=== PATIENT | male | born 1960 | race African-American/Black ===

== ENCOUNTER 2024-10-25 18:49 | Emergency (ER) | payer OTHER ==
[~2024-10-25] VITALS: Ht 175.3 cm; Wt 77.1 kg
[2024-10-25 19:05] VITALS: BP 140/92; TEMP 98.1; O2SAT 100
== END 2024-10-25 20:11 | disposition home or self-care (01) ==
LOC: ER 19:08
DX: R76.11 Nonspecific reaction to tuberculin skin test without active tuberculosis (principal)
CPT/HCPCS: 71046

== ENCOUNTER 2025-01-09 16:51 | Emergency (ER) | payer MEDICAID, OTHER ==
[~2025-01-09] VITALS: Ht 175.3 cm; Wt 83.0 kg
[2025-01-09 17:08] VITALS: BP 132/83; TEMP 98.5
[2025-01-09] MEDS ORDERED: SULFAMETH/TRIMETH 800/160 MG 1 UDTAB TABLET ONE (17:29)
[2025-01-09] MEDS ORDERED: LET SOLN TOPICAL 8 ML UDC TP ONE (17:29)
[2025-01-09] MEDS ORDERED: BACI/NEOM/POLY B OINT PKT 1 UDPKT PACKET ONE (17:29)
[2025-01-09] MEDS ORDERED: LIDOCAINE/PRILOCAINE (5GM) 5 GM TUBE TP ONE (17:29)
[2025-01-09] MEDS ORDERED: CEPHALEXIN MONOHYDRATE 500 MG CAPSULE PO ONE (17:29)
[2025-01-09] MEDS: SULFAMETH/TRIMETH 800/160 MG 1 UDTAB TABLET PO ONE (17:34)
[2025-01-09] MEDS: CEPHALEXIN MONOHYDRATE 500 MG CAPSULE PO ONE (17:34)
[2025-01-09] MEDS: LIDOCAINE/PRILOCAINE (5GM) 5 GM TUBE TP ONE (17:35)
[2025-01-09] MEDS: BACI/NEOM/POLY B OINT PKT 1 UDPKT PACKET TP ONE (17:35)
[2025-01-09] MEDS: LET SOLN TOPICAL 8 ML UDC TP ONE (17:35)
[2025-01-09] MEDS ORDERED: CEPH-570 PO (17:58)
[2025-01-09] MEDS ORDERED: MUPI15CR TP (17:58)
[2025-01-09] MEDS ORDERED: SULF1TAB48 PO (17:58)
[2025-01-09 18:06] VITALS: O2SAT 97
== END 2025-01-09 18:06 | disposition home or self-care (01) ==
LOC: ER 16:54
DX: L73.9 Follicular disorder, unspecified (principal); Z88.8 Allergy status to other drugs, medicaments and biological substances
CPT/HCPCS: 99283; 10060; A6403

== ENCOUNTER 2025-01-18 14:51 | Emergency (ER) | payer MEDICAID ==
[~2025-01-18] VITALS: Ht 175.3 cm; Wt 83.5 kg
[~2025-01-18 14:51] MED LIST: CEPH-570 PO; MUPI15CR TP; SULF1TAB48 PO
[2025-01-18 17:42] VITALS: BP 118/77; TEMP 98.5; O2SAT 98
== END 2025-01-18 17:45 | disposition home or self-care (01) ==
LOC: ER 14:57
DX: L72.0 Epidermal cyst (principal); F17.200 Nicotine dependence, unspecified, uncomplicated; Z60.2 Problems related to living alone

== ENCOUNTER 2025-06-02 09:39 | Emergency (ER) | payer MEDICARE, OTHER ==
[~2025-06-02] VITALS: Ht 175.3 cm; Wt 85.3 kg
[2025-06-02 10:04] VITALS: BP 119/72; TEMP 98.7; O2SAT 96
[2025-06-02] MEDS ORDERED: AZIT250T PO (10:15)
== END 2025-06-02 11:26 | disposition home or self-care (01) ==
LOC: ER 09:39
DX: J40 Bronchitis, not specified as acute or chronic (principal); F17.200 Nicotine dependence, unspecified, uncomplicated